=== PATIENT | female | born 1990 | race Caucasian/White ===

== ENCOUNTER 2020-07-30 14:05 | Emergency (ER) | payer OTHER, SELFPAY ==
[2020-07-30 14:46] VITALS: BP 133/81; PULSE 108; RESP 17; TEMP 36.6; O2SAT 99
--- NOTE | 2020-07-30 14:56 | ED.DENTAL ---
HPI - Dental/Oral General Chief complaint: Dental/Oral Stated complaint: Really bad tooth ache for a month Time Seen by Provider: 07/30/20 14:56 Source: patient Mode of arrival: ambulatory Limitations: no limitations History of Present Illness HPI Narrative: Patient is a 30-year-old female who presents for evaluation of 1 month of worsening dental pain. Patient reports tooth pain in the right upper molar and right lower molars. She states pain is been chronic over 1 month. She denies any facial swelling or redness. She denies any recent trauma to the mouth, tooth fractures, bleeding or purulent discharge. No fever or chills. No difficulty opening her mouth. Patient states she is unable to follow with a dentist due to financial constraints. Related Data Allergies Allergy/AdvReac Type Severity Reaction Status Date / Time No Known Allergies Allergy Verified 07/30/20 14:48 Review of Systems Review of Systems: Narrative: CONSTITUTIONAL: Denies fever CARDIOVASCULAR: Denies chest pain HEENT: Reports tooth pain right upper and right lower molars RESPIRATORY: Denies cough or dyspnea. GASTROINTESTINAL: Denies abdominal pain SKIN: Denies rash MUSCULOSKELETAL: Denies back pain NEUROLOGIC: Denies headache [facility] Past Medical History Medical History (Updated 07/30/20 @ 15:26 by Jolanta Rodas MD) No pertinent past medical history Surgical History Surgical History (Updated 07/30/20 @ 15:26 by Jolanta Rodas MD) History of tonsillectomy Social History Social History (Updated 07/30/20 @ 15:27 by Jolanta Rodas MD) Smoking status: Current every day smoker Tobacco type: cigarettes Alcohol intake: never Substance use: never Living arrangements: with family Gender identity (if verbalized by the patient): Female Exam Narrative: Exam Narrative: GENERAL: Awake, alert, conversant HEAD: Normocephalic, atraumatic. EYES: PERRLA and EOMI. ENT: Nares clear, no rhinorrhea or epistaxis. Mucous membranes moist. No trismus. Uvula is midline. Gingival edema, erythema bilateral upper and lower molars. Dental caries present molar 2, molar 31. No evidence of abscess. No purulent drainage. NECK: Supple. No lymphadenopathy. CHEST: No respiratory distress, breathing even and non labored HEART: Regular rate, sinus rhythm ABDOMEN:Non distended, non tender EXTREMITIES: Normal range of motion. No edema. SKIN: Warm, dry, no rash. NEURO:No focal deficits. Alert and oriented x3 Course Vital Signs Vital signs: Vital Signs Temperature 36.6 C 07/30/20 14:46 Pulse Rate 108 H 07/30/20 14:46 Respiratory Rate 17 07/30/20 14:46 Blood Pressure 133/81 07/30/20 14:46 Pulse Oximetry 99 07/30/20 14:46 Temperature 36.6 C 07/30/20 14:46 Pulse Rate 108 H 07/30/20 14:46 Respiratory Rate 17 07/30/20 14:46 Blood Pressure 133/81 07/30/20 14:46 Pulse Oximetry 99 07/30/20 14:46 MDM - Dental/Oral MDM Narrative Medical decision making narrative: Patient's pain is consistent with dental caries. At the time of assessment there are no signs of systemic illness, no focal signs of space-occupying abscess or lesions, no signs of Mika angina or other concerning retropharyngeal infection. The patient is controlling her secretions well without signs of airway compromise. Patient is thought reasonable for outpatient follow-up with dental evaluation. Patient given oral antibiotics and medication for analgesia. Differential Diagnosis Differential diagnosis: Likely gingival abscess, dental caries, toothache, dental abscess, fracture of tooth and aphthous ulcer Discharge Plan Discharge Clinical Impression: Toothache Patient Disposition: Home, Self-Care Condition: Stable Instructions: Toothache (ED) Additional Instructions: Please contact a dentist for follow up from this visit. [facility] [phone] [place] [address] If you experience worsening pain, vomiting that does not
== END 2020-07-30 15:45 | disposition home or self-care (01) ==
LOC: ANHED 15:32
PROVIDERS: Emergency Provider Emergency Medicine
DX: K08.89 Other specified disorders of teeth and supporting structures (principal); F17.210 Nicotine dependence, cigarettes, uncomplicated
CPT/HCPCS: 99283

== ENCOUNTER 2021-03-04 17:24 | Emergency (ER) | payer OTHER, SELFPAY ==
[2021-03-04 17:58] VITALS: BP 119/75; PULSE 100; RESP 18; TEMP 36.5; O2SAT 99
--- NOTE | 2021-03-04 19:42 | ED.DENTAL ---
HPI - Dental/Oral General Chief complaint: Dental/Oral Stated complaint: tooth pain Time Seen by Provider: 03/04/21 19:12 Source: patient Mode of arrival: ambulatory Limitations: no limitations History of Present Illness HPI Narrative: Patient is a 30-year-old female who presents with right lower jaw pain with a history of impacted molar patient denies taking anything for the symptoms has not seen dentistry and on arrival is in no distress denies any URI symptoms or other complaints Related Data Allergies Allergy/AdvReac Type Severity Reaction Status Date / Time No Known Allergies Allergy Verified 07/30/20 14:48 Review of Systems Review of Systems: All systems reviewed & are unremarkable except as noted in HPI and below PMFSH Past Medical History Medical History No pertinent past medical history Surgical History Surgical History History of tonsillectomy Social History Social History Smoking status: Current every day smoker Tobacco type: cigarettes Alcohol intake: never Substance use: never Gender identity (if verbalized by the patient): Female Exam Narrative: Exam Narrative: GENERAL: Well-appearing, well-nourished, and in no acute distress. HEAD: Normocephalic, atraumatic. EYES: PERRLA and EOMI. ENT: Nares clear, no rhinorrhea or epistaxis. Mucous membranes moist. Oropharynx without tonsillar hypertrophy exudate or other lesions. Impacted right lower wisdom tooth no erythema or swelling floor the mouth is soft uvula is midline no trismus or drooling CHEST: Clear to auscultation. No respiratory distress. No wheezes rales or rhonchi HEART: Regular rate and rhythm. No murmur heard. EXTREMITIES: Normal range of motion. No edema. SKIN: Warm, dry, no rash. NEURO: No focal deficits. Alert and oriented x3. PSYCH: Normal mood and affect. Course Course Emergency Course: Patient in the room in no distress aware of case findings treatment plan and diagnosis given dentistry follow-up felt appropriate for outpatient reevaluation Vital Signs Vital signs: Vital Signs Temperature 97.7 F 03/04/21 17:58 Pulse Rate 100 03/04/21 17:58 Respiratory Rate 18 03/04/21 17:58 Blood Pressure 119/75 03/04/21 17:58 Pulse Oximetry 99 03/04/21 17:58 Temperature 97.7 F 03/04/21 17:58 Pulse Rate 100 03/04/21 17:58 Respiratory Rate 18 03/04/21 17:58 Blood Pressure 119/75 03/04/21 17:58 Pulse Oximetry 99 03/04/21 17:58 MDM - Dental/Oral MDM Narrative Medical decision making narrative: Patients pain and complaint coupled with physical findings are consistent with dentalgia. There are no focal signs of space occupying lesions that are compromising to the airway. The floor of the mouth is soft with no signs of Mika Angina. Patient is without trismus or drooling and able to swallow secretions. Patient is felt appropriate for discharge home with dental follow up. Discharge Plan Discharge Clinical Impression: Dental abscess Patient Disposition: Home, Self-Care Condition: Stable Instructions: Antibiotic Form, Dental Abscess (ED) Additional Instructions: Follow-up with dentistry in the next 7 days. Go to ER for shortness of breath, difficulty breathing, chest pain, fever/chills, weakness, nauseau/vomitting, unable to swallow or open the mouth etc. or any other concerns. Follow patient education sheets Take any prescribed medications as directed. Only take medications as directed If you do not have a drug allergy to tylenol or motrin and can tolerate it then take tylenol or motrin as needed for discomfort/pain. Prescriptions: New amoxicillin 500 mg capsule 500 mg PO Q8H 10 Days Qty: 30 RF: 0 ibuprofen [IBU] 600 mg tablet 600 mg PO Q6H PRN (Reason: fever or pain) Qty: 7 RF: 0 chlorhexidine gl
[2021-03-04 20:23] VITALS: BP 120/74; PULSE 86; RESP 18; O2SAT 100
== END 2021-03-04 20:25 | disposition home or self-care (01) ==
PROVIDERS: Emergency Provider Emergency Medicine; PCP Internal Medicine
DX: K04.7 Periapical abscess without sinus (principal); F17.210 Nicotine dependence, cigarettes, uncomplicated
CPT/HCPCS: 99283

== ENCOUNTER 2021-06-03 02:26 | Emergency (ER) | payer OTHER, SELFPAY ==
--- NOTE | 2021-06-03 02:30 | ED.EAR ---
HPI - Ear Problem General Chief complaint: Ear Stated complaint: Sharp pain in ear, radiates to jaw Time Seen by Provider: 06/03/21 02:30 History of Present Illness HPI Narrative: Ear pain for the past 4 days. Intermittent. Sharp. Radiates to her jaw. Associated with muffled hearing. No fever, drainage, sore throat. Related Data Allergies Allergy/AdvReac Type Severity Reaction Status Date / Time No Known Allergies Allergy Verified 06/03/21 02:35 Review of Systems Review of Systems: All systems reviewed & are unremarkable except as noted in HPI and below Constitutional: Constitutional: Denies chills and Denies fever(s) Eyes: Eyes: Reports no additional eye complaints ENT: Denies dizziness and Denies sore throat Cardiovascular: Cardiovascular: Denies chest pain Respiratory: Respiratory: Denies dyspnea Gastrointestinal: Gastrointestinal: Denies nausea Neurologic: Denies headache(s) [facility] Past Medical History Medical History No pertinent past medical history Surgical History Surgical History History of tonsillectomy Social History Social History Smoking status: Current every day smoker Tobacco type: cigarettes Alcohol intake: never Substance use: never Gender identity (if verbalized by the patient): Female Exam Const: General: no acute distress and alert Orientation/consciousness: patient oriented x3 HENMT: Ears: TM abnormal wth effusion serous on the right Face and sinus: normal facial exam Mouth: Yes Normal oral and palatal mucosa present, Yes lip normal and Yes moist mucous membranes Teeth and gingiva: dentition normal Throat: posterior oropharynx normal Eyes: Pupils: Equal, round and reactive pupils present Neck: Neck: normal visual inspection and no lymphadenopathy Resp: Effort & Inspection: normal respiratory effort Auscultation: clear to auscultation bilaterally Cardio: Rate: regular rate Rhythm: regular rhythm Skin: General skin exam: normal color Neuro: General: patient oriented x3 and moves all extremities Speech: normal speech Extrem: General: normal to inspection Course Vital Signs Vital signs: Vital Signs Temperature 36.4 C L 06/03/21 02:33 Pulse Rate 98 06/03/21 02:33 Respiratory Rate 14 06/03/21 02:33 Blood Pressure 137/86 06/03/21 02:33 Pulse Oximetry 98 06/03/21 02:33 Temperature 36.4 C L 06/03/21 02:33 Pulse Rate 98 06/03/21 02:38 Respiratory Rate 20 06/03/21 02:38 Blood Pressure 128/90 06/03/21 02:38 Pulse Oximetry 98 06/03/21 02:38 Medical Decision Making Differential Diagnosis Differential Diagnosis: Otitis media, other Medical Records Medical records reviewed: Yes I reviewed the external patient's medical records. Vital Signs Vital Signs: Vital Signs Temperature 36.4 C L 06/03/21 02:33 Pulse Rate 98 06/03/21 02:33 Respiratory Rate 14 06/03/21 02:33 Blood Pressure 137/86 06/03/21 02:33 Pulse Oximetry 98 06/03/21 02:33 Temperature 36.4 C L 06/03/21 02:33 Pulse Rate 98 06/03/21 02:38 Respiratory Rate 20 06/03/21 02:38 Blood Pressure 128/90 06/03/21 02:38 Pulse Oximetry 98 06/03/21 02:38 Discharge Plan Discharge Clinical Impression: Otitis media Patient Disposition: Home, Self-Care Condition: Stable Instructions: Antibiotic Form, Ear Infection (GEN) Prescriptions: New amoxicillin-pot clavulanate [Augmentin] 875-125 mg tablet 1 tablet PO Q12H Qty: 14 RF: 0 Follow-up/Referrals: Lizandro,MD Tyrese [Primary Care Provider] -
[2021-06-03 02:33] VITALS: BP 137/86; PULSE 98; RESP 14; TEMP 36.4; O2SAT 98
[2021-06-03 02:38] VITALS: BP 128/90; PULSE 98; RESP 20; O2SAT 98
[2021-06-03] MEDS: AMOXICILLIN/CLAVULANATE K 875-125 MG TAB 1 TABLET PO (02:52)
[2021-06-03] MEDS: IBUPROFEN 600 MG TABLET PO (02:52)
== END 2021-06-03 03:30 | disposition home or self-care (01) ==
PROVIDERS: Emergency Provider Emergency Medicine; PCP Internal Medicine
DX: H66.91 Otitis media, unspecified, right ear (principal); F17.210 Nicotine dependence, cigarettes, uncomplicated
CPT/HCPCS: 99283; A9270